=== PATIENT | male | born 1985 | race Caucasian/White ===

== ENCOUNTER 2020-03-07 09:14 | Outpatient (CLI) | payer OTHER, SELFPAY ==
--- NOTE | ~2020-03-07 | US_ITS ---
EXAMINATION: US right upper quadrant DATE: 03/07/2020 10:13 INDICATION: Hepatitis C. TECHNIQUE: Multiple grayscale and Doppler ultrasound images of the abdomen were obtained. COMPARISON: Chest CT 09/14/2010 FINDINGS: The visualized portions of the head, body, and tail of the pancreas are normal. The liver i s normal without focal lesion. No liver surface nodularity. There is normal flow in main portal vein. The gallbladder is normal in size. No gallstones or gallbladder wall thickening. There was no sonogr aphic Rice sign. The common duct is mildly dilated to 7 mm. There is sludge in the common duct. IMPRESSION: 1. Normal liver. 2. Mildly dilated common duct. Reviewed, dictated and finalized at location A.
[2020-03-07 11:12] LABS: Hematocrit 46.7 % (42.0-52.0); Hemoglobin 16.1 g/dL (14.0-18.0); Immature Platelet Fraction Pct 17.1 % (0.9-11.2); Mean Corpuscular HGB Conc 34.5 g/dl (32-36); Mean Corpuscular Volume 95.7 fl (80-100); Mean Platelet Volume 12.5 fl (7.4-10.4); Red Blood Count 4.88 M/mm3 (4.6-6.20); White Blood Count 7.8 K/mm3 (4.5-10.0)
[2020-03-07 11:20] LABS: INR 0.9; Prothrombin Time 11.8 Seconds (11.1-14.7)
[2020-03-07 11:21] LABS: Partial Thromboplastin Time 25.4 SECONDS (22.3-36.8)
[2020-03-07 11:28] LABS: Alanine Aminotransferase 79 U/L (4-50); Albumin Level 4.7 g/dL (3.5-5.1); Alkaline Phosphatase 85 U/L (38-126); Aspartate Amino Transferase 62 U/L (17-59); Bilirubin Indirect 0.9 mg/dL (0-1.1); Bilirubin,Total 0.6 mg/dL (0.2-1.3)
[2020-03-07 11:33] LABS: Iron 196 ug/dL (49-181)
[2020-03-07 11:35] LABS: Transferrin 222 mg/dL (206-381)
[2020-03-07 11:40] LABS: Erythrocyte Sedimentation Rate 4 mm/hr (0-20)
[2020-03-07 11:43] LABS: Percent Iron Saturation 66 % (20-50)
[2020-03-07 12:06] LABS: Hepatitis B Surface Antigen Negative (Negative)
[2020-03-07 12:12] LABS: HAV RESULT Negative (Negative); Hepatitis B Core IgM Result Negative (Negative)
[2020-03-07 12:29] LABS: Hepatitis B Surface Anti Res Positive; Hepatitis C Virus Antibody Reactive (Negative)
[2020-03-09 03:53] LABS: Alpha-1-Antitrypsin, QN 147 mg/dL (83-199); Ceruloplasmin 31 mg/dL (18-36)
[2020-03-10 22:01] LABS: Mitochondrial (M2) Ab (IgG) <=20.0 U (<=20.0)
[2020-03-13 18:14] LABS: Hepatitis C RNA, Quant PCR 1090000 IU/mL
== END 2020-03-07 09:15 | disposition home or self-care (01) ==
PROVIDERS: Visit Provider Internal Medicine Gastroenterology
DX: B19.20 Unspecified viral hepatitis C without hepatic coma (principal)
CPT/HCPCS: 36415; 76705; 82040; 82103; 82247; 82248; 82390; 82728; 83520; 83540; 83550; 84075; 84450; 84460; 84466; 85027; 85055; 85610; 85652; 85730; 86038; 86235; 86705; 86706; 86709; 86803; 87340; 87522

== ENCOUNTER 2020-03-15 14:06 | Outpatient (CLI) | payer OTHER, SELFPAY ==
[2020-03-15 16:23] LABS: Hepatitis C Virus Antibody Reactive (Negative)
[2020-03-19 18:53] LABS: Amphetamines negative; Barbiturates negative; Benzodiazepines negative; Cocaine Metabolites negative; Marijuana Metabolites negative; PCP negative
[2020-03-22 16:11] LABS: Hepatitis C RNA, Quant PCR 1420000 IU/mL; Hepatitis C Viral RNA PCR 1370000 IU/mL
[2020-03-25 14:02] LABS: HCV Genotype, LiPA 1b
== END 2020-03-15 14:07 | disposition home or self-care (01) ==
PROVIDERS: PCP Internal Medicine Gastroenterology; Visit Provider Internal Medicine Gastroenterology
DX: B19.20 Unspecified viral hepatitis C without hepatic coma (principal)
CPT/HCPCS: 36415; 80307; 82172; 82247; 82465; 82977; 83010; 83883; 84450; 84460; 84478; 86803; 87522; 87902

== ENCOUNTER 2023-02-04 00:32 | Day surgery (SDC) | payer OTHER, SELFPAY ==
[2023-01-28 14:42] VITALS: BMI 22.9
--- NOTE | 2023-02-04 09:04 | WPDANESEPPF ---
Anes - Initial Pre Proc Eval Procedure: Operation Date: 02/04/23 13:15 Proposed Procedures p Esophagogastroduodenoscopy & Colonoscopy - Chepe Hooker MD Date/Time: 02/04/23 09:04 Surgeon: Chepe Hooker MD Pre Op Diagnosis: LLQP, Nausea, testicular pain Patient Data Age: 37 Gender: M Height: 1.75 m Weight: 70.5 kg Allergies Allergy/AdvReac Type Severity Reaction Status Date / Time lorazepam Allergy Unknown Unknown Verified 02/04/23 11:43 CYCLOBENZAPRINE HCL Allergy Intermediate Unknown Uncoded 02/04/23 11:43 Home Medications Medication Instructions Recorded Confirmed Type famotidine 20 mg tablet (Acid 20 mg PO DAILY #30 tabs 01/12/23 01/29/23 Rx Legal Activity Adjudicator (famotidine)) methadone 10 mg/mL oral concentrate 200 mg PO DAILY 01/12/23 02/04/23 History Patient hx anesthesia problems: none Family hx anesthesia problems: none Results Review: All pre-operative results and documents have been reviewed as part of the pre-operative evaluation. [facility] Past Medical History Medical History (Updated 01/12/23 @ 14:15 by Denae Cordova, ANA) Constipation due to opioid therapy Hx of hepatitis C LLQ abdominal pain Methadone dependence Nausea Testicular pain Family History Family History Other Family history of arthritis Social History Social History Years smoked: 1 Smoking status: Current every day smoker Tobacco type: e-cigarettes/vaping Alcohol intake: never Substance use: former Substance use type: opiates and other Other substance usage details: fentanyl, on methadone Last use: 2 years Living arrangements: with family Spiritual care concerns: No Anes - Eval Final PreProcedure Day of Procedure 02/04/23 09:04 Patient weight: normal Heart: regular rate and rhythm Lungs: clear to auscultation and normal air movement Airway: Mallampati scale class II Neurological: alert and oriented Last oral intake: >/= 8 hours ASA classification: III Emergent: no Anesthetic plan: proceed Anesthesia type and monitoring: general GIVS Results Review: All pre-operative results and documents have been reviewed as part of the pre-operative evaluation. Informed Consent: The patient's anesthetic plan and its attendant risks and benefits were discussed with the patient/family/POA. Questions were solicited and answers provided to the satisfaction of the patient/family/POA.
[2023-02-04 11:45] VITALS: BP 113/78; PULSE 86; RESP 17; TEMP 36.6; O2SAT 97
[2023-02-04] MEDS: LACTATED RINGERS 1,000 ML 150 ML IV CONT (12:05)
--- NOTE | 2023-02-04 12:23 | WPDHPUPDATE1 ---
History and Physical Update Update Date/Time: 02/04/23 12:23 History and Physical has been reviewed, including an updated exam of the patient. There are NO changes in the patient's condition. Risks, benefits, and alternatives have been discussed and questions answered. Patient agrees to proceed with procedure.
--- NOTE | 2023-02-04 12:38 | SUR.OPER ---
EGD start 1229 end 1234, Colonoscopy start 1238
[2023-02-04 12:53] VITALS: BP 95/56; PULSE 78; RESP 18; O2SAT 99
[2023-02-04 13:03] VITALS: BP 103/71; PULSE 81; RESP 18; O2SAT 99
[2023-02-04 13:13] VITALS: BP 117/77; PULSE 77; RESP 18; O2SAT 99
== END 2023-02-04 13:20 | disposition home or self-care (01) ==
PROVIDERS: PCP Emergency Medicine; Visit Provider Internal Medicine Gastroenterology
PROC: 0DJ08ZZ Inspection of Upper Intestinal Tract, Via Natural or Artificial Opening Endoscopic (ICD-10-PCS; CPT 43235; principal; 2023-02-04 13:15)
DX: R10.32 Left lower quadrant pain (principal); K59.00 Constipation, unspecified; Z86.19 Personal history of other infectious and parasitic diseases; R11.0 Nausea; K44.9 Diaphragmatic hernia without obstruction or gangrene; F17.290 Nicotine dependence, other tobacco product, uncomplicated; F11.20 Opioid dependence, uncomplicated
CPT/HCPCS: 45378; 43239; 88305; J2704; J7120

== ENCOUNTER 2023-02-09 13:26 | Outpatient (CLI) | payer OTHER, SELFPAY ==
--- NOTE | ~2023-02-09 | XR_ITS ---
XR abdomen/kub 1V 02/09/2023 13:57 INDICATION: Flank pain TECHNIQUE: KUB COMPARISON: None FINDINGS: Bowel gas pattern is normal. Moderate colonic fecal loading. Lung bases are unremarkable. T here is no evidence of free air, mass, organomegaly, ascites or obstruction. No abnormal calculi are seen. The bones appear intact. IMPRESSION: 1: No acute abdominal abnormality identified. Reviewed, dictated and finalized at location []
[2023-02-09 14:00] LABS: Hematocrit 41.1 % (42.0-52.0); Hemoglobin 14.2 g/dL (14.0-18.0); Mean Corpuscular HGB Conc 34.5 g/dl (32-36); Mean Corpuscular Hemoglobin 32.1 pg (26-34); Mean Corpuscular Volume 92.8 fl (80-100); Mean Platelet Volume 10.7 fl (7.4-10.4); Platelet Count Result 189 k/mm3 (150-375); Red Blood Count 4.43 M/mm3 (4.6-6.20); Red Cell Distribution Width 12.2 % (11.5-14.5)
[2023-02-09 14:15] LABS: Alanine Aminotransferase 19 U/L (6-50); Albumin Level 4.7 g/dL (3.5-5.1); Alkaline Phosphatase 64 U/L (38-126); Anion Gap 10 mmol/L (8-16); Aspartate Amino Transferase 29 U/L (17-59); Bilirubin,Total 0.4 mg/dL (0.2-1.3); Blood Urea Nitrogen 16 mg/dL (9-20); Carbon Dioxide 26 mmol/L (22-30); Chloride 102 mmol/L (98-107); Estimated Glomerular Filt Rate > 60; Glucose 106 mg/dL (65-110); Potassium 4.2 mmol/L (3.4-5.0); Sodium 138 mmol/L (137-145)
[2023-02-12 14:40] LABS: Hepatitis C RNA, Quant PCR <15 IU/mL
== END 2023-02-09 13:27 | disposition home or self-care (01) ==
LOC: ANHLAB 13:28
PROVIDERS: PCP Emergency Medicine; Visit Provider Nurse Practitioner
DX: N50.819 Testicular pain, unspecified (principal); R10.32 Left lower quadrant pain; R11.0 Nausea
CPT/HCPCS: 36415; 74018; 80053; 85027; 87522